=== PATIENT | male | born 1965 | race Caucasian/White ===

== ENCOUNTER 2018-02-14 12:20 | Emergency (ER) | payer SELFPAY ==
[~2018-02-14] VITALS: Ht 177.8 cm; Wt 118.4 kg
[~2018-02-14 12:20] MED LIST: APIX5TAB PO; ASPI1TAB57 PO; METO25TA3 PO; METO50TA PO
[2018-02-14 12:27] VITALS: BP 118/85; PULSE 81; RESP 16; TEMP 97.5; O2SAT 98
[2018-02-14] MEDS ORDERED: SIMV20TA PO (12:39)
[2018-02-14] MEDS ORDERED: METO25TA3 PO (12:39)
[2018-02-14] MEDS ORDERED: K-TA10TA PO (12:40)
[2018-02-14] MEDS ORDERED: HYDR25TA5 PO (12:40)
--- NOTE | 2018-02-14 12:45 | PD ---
HPI Chief Complaint: Musculoskeletal Complaint Time Seen by Provider: 12:31 Travel History International Travel<30 days: No Contact w/Intl Traveler<30days: No Traveled to known affect area: No History of Present Illness HPI This 52-year-old male is complaining of pain in his right foot. Having pain in the right heel for several days. Pain is aggravated by walking. He has noted a tender area on the lateral aspect of the heel. He has had gout in the past. He does have a history of pulmonary embolus and is on Eliquis twice daily. There has not been any fever or chills. He does not recall any trauma to this area PFSH Past Medical History Hx Anticoagulant Therapy: Yes (asa 80 hx of DVT's) Cardiovascular Problems: Yes (hx of a-fib) Diminished Hearing: No Social History Alcohol Use: Yes (ALL DAY LONG) Tobacco Use: Yes (2PPD) Substance Use: No Allergies-Medications (Allergen,Severity, Reaction): Coded Allergies: No Known Allergies (Unverified Adverse Reaction, Unknown, 02/14/18) Reported Meds & Prescriptions Reported Meds & Active Scripts Active Reported Temazepam 30 Mg Cap 30 Mg PO HS PRN Lasix (Furosemide) 20 Mg Tab 20 Mg PO BID Amlodipine (Amlodipine Besylate) 5 Mg Tab 5 Mg PO DAILY Simvastatin 10 Mg Tab 10 Mg PO DAILY K-Tab (Potassium Chloride) 10 Meq Tab 10 Meq PO DAILY Hydrochlorothiazide 25 Mg Tab 25 Mg PO DAILY Metoprolol Tartrate 25 Mg Tab 25 Mg PO DAILY Aspirin 81 (Aspirin) 81 Mg Tabdr 81 Mg PO DAILY Metoprolol Tartrate 25 Mg Tab 75 Mg PO HS Eliquis (Apixaban) 5 Mg Tab 5 Mg PO BID Review of Systems General / Constitutional: No: Fever, Chills Eyes: No: Diploplia, Blurred Vision HENT: No: Headaches, Vertigo Cardiovascular: No: Chest Pain or Discomfort, Palpitations Respiratory: No: Cough, Shortness of Breath Gastrointestinal: No: Nausea, Vomiting Genitourinary: No: Urgency, Frequency Musculoskeletal: Positive: Myalgias, Arthralgias, Pain Skin: No Rash, No Itching Neurologic: No: Weakness Psychiatric: No: Anxiety Endocrine: No: Heat Intolerance, Cold Intolerance Hematologic/Lymphatic: No: Easy Bruising Physical Exam Narrative GENERAL: Well-developed male SKIN: Focused skin assessment warm/dry. HEAD: Atraumatic. Normocephalic. EYES: Pupils equal and round. No scleral icterus. No injection or drainage. ENT: No nasal bleeding or discharge. Mucous membranes pink and moist. NECK: Trachea midline. No JVD. CARDIOVASCULAR: Regular rate and rhythm. No murmur appreciated. RESPIRATORY: No accessory muscle use. Clear to auscultation. Breath sounds equal bilaterally. GASTROINTESTINAL: Abdomen soft, non-tender, nondistended. Hepatic and splenic margins not palpable. MUSCULOSKELETAL: No obvious deformities. No clubbing. No cyanosis. No edema. Emanation of the right foot there is some swelling and tenderness around the lateral aspect of the right heel. There is no warmth or erythema. Calf is nontender. The plantar surface of the foot is not tender NEUROLOGICAL: Awake and alert. No obvious cranial nerve deficits. Motor grossly within normal limits. Normal speech. PSYCHIATRIC: Appropriate mood and affect; insight and judgment normal. Data Data Last Documented VS Vital Signs Date Time Temp Pulse Resp B/P (MAP) Pulse Ox O2 Delivery O2 Flow Rate FiO2 02/14/18 12:27 97.5 81 16 118/85 (96) 98 Orders Orders Foot, Complete ([id number]) (02/14/18 12:36) [facility] Medical Decision Making Medical Screen Exam Complete: Yes Emergency Medical Condition: Yes Medical Record Reviewed: Yes Differential Diagnosis Differential diagnosis includes plantar fasciitis, Achilles tendinitis, arthritis of the foot Narrative Course The Achilles tendon itself is not tender in the plantar surface of the foot does not appear to be the site of maximal pain. He is tender along the lateral aspect of the heel and he says the pain is quite uncomfortable. This may be subtalar arthritis he is on Eliquis so is not able to take anti-inflammatory medication. I will prescribe a Medrol Dosepak and a few pain pills as he says the Tylenol has not been helpful Diagnosis Primary Impression: Arthritis of foot Scripts Methylprednisolone Dosepak (Medrol Dosepak) 4 Mg Dspk 4 MG PO DIRECTED, #1 DSPK 0 Refills Per Pharmacist direction Prov: Carlos Hanson MD 02/14/18 Hydrocodone-Acetaminophen ([place]) 7.5-325 mg Tab 1 TAB PO Q4H Y for PAIN, #10 TAB 0 Refills Prov: Carlos Hanson MD 02/14/18 Disposition: 01 DISCHARGE HOME Condition: Stable Carlos Hanson MD Feb 14, 2018 12:45
--- NOTE | 2018-02-14 12:54 | RADRPT ---
EXAM DATE: 02/14/2018 12:50 PM EDT AGE/SEX: 52 years / Male INDICATIONS: Left foot pain mostly on the lateral aspect of the heel with no known injury x 3 days. CLINICAL DATA: This is the patient's initial encounter. Patient reports that signs and symptoms have been present for 3 days and indicates a pain score of 8/10. MEDICAL/SURGICAL HISTORY: . A-fib. . Left ankle COMPARISON: No prior exams available for comparison. FINDINGS: The examination demonstrates moderate arthritic changes in the metatarsal phalangeal joint of the fir st digit. The bony structures are otherwise intact. No acute fracture or destructive lesion is identi fied. CONCLUSION: Osteoarthritic changes within the great toe. Electronically signed by: Eric Machado MD 02/14/2018 12:53 PM EDT
[2018-02-14] MEDS ORDERED: AMLO5TAB2 PO (12:56)
[2018-02-14] MEDS ORDERED: FURO1TAB62 PO (12:56)
[2018-02-14] MEDS ORDERED: SIMV10TA PO (12:56)
[2018-02-14] MEDS ORDERED: TEMA30CA PO (12:56)
[2018-02-14] MEDS ORDERED: HYDR-3288 PO (13:08)
[2018-02-14] MEDS ORDERED: MEDR4PAK PO (13:10)
== END 2018-02-14 13:42 | disposition home or self-care (01) ==
LOC: PHED 12:20
DX: M19.071 Primary osteoarthritis, right ankle and foot (principal); I48.91 Unspecified atrial fibrillation; M10.9 Gout, unspecified; F17.200 Nicotine dependence, unspecified, uncomplicated; Z79.82 Long term (current) use of aspirin; Z79.899 Other long term (current) drug therapy; Z86.718 Personal history of other venous thrombosis and embolism; Z86.711 Personal history of pulmonary embolism
CPT/HCPCS: 73630; 99283